=== PATIENT | female | born 1980 | race Asian ===

== ENCOUNTER 2016-08-29 22:14 | Emergency (ER) | payer OTHER ==
[~2016-08-29] VITALS: Ht 154.9 cm; Wt 59.0 kg
[2016-08-29 22:14] VITALS: BP 133/96; PULSE 75; RESP 23; TEMP 97; O2SAT 99
--- NOTE | 2016-08-29 22:14 | NUR ---
Patient to ER bed 1 to gown for evaluation. Side rails up. Report given to LEENA LAZO.
--- NOTE | 2016-08-29 22:25 | NUR ---
Pt presents to ED with c/o difficulty breathing, skin warm and intact, non-diaphretic, no acessory muscle use. A&Ox4, denies chestpain, denies N/V/D. Will continue to monitor
--- NOTE | 2016-08-29 22:55 | NUR ---
at bedside examining pt
[2016-08-29] MEDS ORDERED: LevALBUTEROL HCL 1.25 MG/0.5 ML *CONC.* VIAL.NEB (XOPENEX CONC.) INH ONE (23:00)
--- NOTE | 2016-08-29 23:30 | NUR ---
Pt in bed, stated she feels comfortable
[2016-08-30 00:20] VITALS: BP 126/90; PULSE 72; RESP 18; TEMP 97; O2SAT 98
--- NOTE | 2016-08-30 00:20 | NUR ---
Patient given written and verbal discharge instructions and verbalizes understanding. ER MD Randhawa discussed with patient the results and treatment provided. Patient in stable condition. ID arm band removed. Rx of albuterol given. Patient educated on pain management and to follow up with PMD. Pain Scale 0/10 Opportunity for questions provided and answered.
== END 2016-08-30 00:20 | disposition home or self-care (01) ==
LOC: SED 22:14
DX: B34.9 Viral infection, unspecified (principal); J45.909 Unspecified asthma, uncomplicated
CPT/HCPCS: 71010; 94150; 94640; 99283

== ENCOUNTER 2017-07-05 11:47 | Emergency (ER) | payer OTHER ==
[~2017-07-05] VITALS: Ht 154.9 cm; Wt 52.2 kg
[2017-07-05 11:47] VITALS: BP_SYST 123
[2017-07-05 12:21] LABS: BASOPHILS % (AUTO) 0.1 % (0.0-2.0); EOSINOPHILS % (AUTO) 0.7 % (0.0-4.0); HEMATOCRIT 39.2 % (36-48); HEMOGLOBIN 12.6 g/dL (12.0-16.0); LYMPHOCYTES # (AUTO) 2.4 K/uL (1.0-5.5); LYMPHOCYTES % (AUTO) 35.5 % (20.5-51.5); MEAN CORPUSCULAR HEMOGLOBIN 25 pg (27-31); MEAN CORPUSCULAR HGB CONC 32 % (32-36); MEAN CORPUSCULAR VOLUME 78 fL (79.0-98.0); MONOCYTES # (AUTO) 0.5 K/uL (0.0-1.0); MONOCYTES % (AUTO) 7.3 % (1.7-9.3); NEUTROPHILS # (AUTO) 3.9 K/uL (1.8-7.7); NEUTROPHILS % (AUTO) 56.4 % (40.0-70.0); PLATELET COUNT (AUTO) 373 K/uL (130-430); RED CELL DISTRIBUTION WIDTH 12.7 % (9.0-15.0); WHITE BLOOD COUNT (AUTO) 6.8 K/uL (4.8-10.8)
[2017-07-05 12:22] LABS: BILIRUBIN,URINE NEGATIVE (NEGATIVE); BLOOD, URINE 2+ (NEGATIVE); CLARITY/URINE CLEAR (CLEAR); COLOR,URINE YELLOW (YELLOW); GLUCOSE,URINE NEGATIVE (NEGATIVE); KETONES,URINE NEGATIVE (NEGATIVE); LEUKOCYTE ESTERASE ,URINE NEGATIVE (NEGATIVE); NITRITE, URINE NEGATIVE (NEGATIVE); PH,URINE 5.5 (5.0-8.0); PROTEIN URINE NEGATIVE (NEGATIVE); UROBILINOGEN,URINE 0.2 (0.2-1.0)
[2017-07-05 12:37] LABS: CALCIUM 9.6 mg/dL (8.4-11.0); CREATININE 0.82 mg/dL (0.55-1.30); POTASSIUM 3.6 mmol/L (3.5-5.1)
[2017-07-05 12:48] LABS: BACTERIA,URINE FEW /HPF (None Seen); WBC,URINE 0-3 /HPF (0-3)
[2017-07-05 13:00] LABS: ALBUMIN 4.4 g/dL (3.4-4.8); TOTAL BILIRUBIN 0.7 mg/dL (0.0-1.0)
--- NOTE | 2017-07-05 13:10 | NUR ---
Patient to ER bed 3 to gown for evaluation. Side rails up. Report given to Lady LAZO.
--- NOTE | 2017-07-05 13:10 | NUR ---
Pt complains of cramping to lower abdomen that radiates to lower back for 2 days. Pt also complains of spotting when wiping. Pt states she is 5 weeks . Pt denies N/V, fever, diarrhea or constipation. No other injuries/complaints per patient.
--- NOTE | 2017-07-05 13:20 | NUR ---
ER Dr. Alba at bedside examining patient.
[2017-07-05 14:30] VITALS: BP_SYST 119
--- NOTE | 2017-07-05 14:30 | NUR ---
Patient given written and verbal discharge instructions and verbalizes understanding. ER MD discussed with patient the results and treatment provided. Patient in stable condition. ID arm band removed. No Rx given. Patient educated on pain management and to follow up with PMD. Pain Scale 0. Opportunity for questions provided and answered.
== END 2017-07-05 14:30 | disposition home or self-care (01) ==
LOC: SED 11:47
DX: O20.9 Hemorrhage in early pregnancy, unspecified (principal); R03.0 Elevated blood-pressure reading, without diagnosis of hypertension; J45.909 Unspecified asthma, uncomplicated; Z3A.01 Less than 8 weeks gestation of pregnancy
CPT/HCPCS: 36415; 76805-TC; 80053; 81000-TC; 84702-TC; 85025; 86900; 86901; 99285

== ENCOUNTER 2018-02-12 07:36 | Observation (INO) | payer OTHER ==
[~2018-02-12] VITALS: Ht 154.9 cm; Wt 65.8 kg
[2018-02-12] MEDS ORDERED: PROMETHAZINE HCL 25 MG/ML AMP IM PRN (10:15)
[2018-02-12] MEDS ORDERED: MEPERIDINE HCL/PF 100 MG/ML AMP IM PRN (10:15)
[2018-02-12 19:42] VITALS: BP_SYST 120
[2018-02-13] MEDS ORDERED: LR 500 ML IV ONE (06:30)
[2018-02-14] MEDS ORDERED: LR 500 ML IV ONE (06:21)
== END 2018-02-13 09:30 | disposition home or self-care (01) ==
LOC: UNDOADMOB 07:36 → SPU 07:36
PROVIDERS: ADMIT Obstetrics & Gynecology; ATTEND Obstetrics & Gynecology
DX: O26.853 Spotting complicating pregnancy, third trimester (principal); Z3A.36 36 weeks gestation of pregnancy
CPT/HCPCS: 76805; 81002; 96372; G0378 ×2; J2175 ×2; J2550 ×2

== ENCOUNTER 2018-02-14 01:45 | Inpatient (IN) | payer OTHER ==
[~2018-02-14] VITALS: Ht 154.9 cm; Wt 67.1 kg
[2018-02-14] MEDS ORDERED: fentaNYL CITRATE/PF 100 MCG/2 ML AMP ONE (02:47)
[2018-02-14] MEDS ORDERED: ROPIVACAINE 0.2% 100 ML ONE (02:47)
[2018-02-14] MEDS ORDERED: LR 500 ML IV ONE (02:57)
[2018-02-14] MEDS ORDERED: LR 1,000 ML IV SCH (02:58)
[2018-02-14] MEDS ORDERED: LR 1,000 ML IV ONE (02:58)
[2018-02-14] MEDS ORDERED: OXYTOCIN/0.9 % SODIUM CHLORIDE 1,000 ML IV SCH ×2 (02:58→07:04)
[2018-02-14] MEDS ORDERED: NALBUPHINE HCL 10 MG/ML AMP IVP PRN (03:00)
[2018-02-14] MEDS ORDERED: FENT2mCg/mL-ROPIVA0.2%/NS EPID 150 ML EP SCH (03:00)
[2018-02-14] MEDS ORDERED: AMPICILLIN SODIUM 2 GM in NS 100 ML IV ONE (03:00)
[2018-02-14] MEDS ORDERED: TERBUTALINE SULFATE 1 MG/ML VIAL SUBCUT ONE (03:00)
[2018-02-14 03:05] VITALS: BP_SYST 124
[2018-02-14] MEDS ORDERED: AMPICILLIN SODIUM 2 GM VIAL ONE (03:07)
[2018-02-14] MEDS: AMPICILLIN SODIUM 1 GM in NS 50 ML IV SCH ×2 (03:12→06:39)
[2018-02-14 04:19] LABS: HEMATOCRIT 37.5 % (36-48); HEMOGLOBIN 11.8 g/dL (12.0-16.0); MEAN CORPUSCULAR HEMOGLOBIN 26 pg (27-31); MEAN CORPUSCULAR HGB CONC 32 % (32-36); MEAN CORPUSCULAR VOLUME 81 fL (79.0-98.0); PLATELET COUNT (AUTO) 314 K/uL (130-430); RED BLOOD CELL COUNT(AUTO) 4.62 MIL/uL (4.2-6.2); RED CELL DISTRIBUTION WIDTH 12.2 % (9.0-15.0)
[2018-02-14 05:56] LABS: BASOPHILS % (MANUAL) 0 % (0-2); EOSINOPHILS % (MANUAL) 0 % (0-7); LYMPHOCYTES % (MANUAL) 4 % (20-46); MONOCYTES % (MANUAL) 3 % (0-11)
[2018-02-14] MEDS ORDERED: AMPICILLIN SODIUM 1 GM VIAL ONE (06:41)
[2018-02-14] MEDS ORDERED: OXYTOCIN/0.9 % SODIUM CHLORIDE 1,000 ML IV ONE (07:04)
[2018-02-14] MEDS ORDERED: MEASLES,MUMPS&RUBELLA VACC/PF 12500 UNIT/0.5 ML VIAL SUBQ PRN (07:15)
[2018-02-14] MEDS ORDERED: WITCH HAZEL LEAF 1 MED.PAD MED.PAD TP PRN (07:15)
[2018-02-14] MEDS ORDERED: ANUSOL 1 EA SUPP.RECT (PREPARATION H) RC PRN (07:15)
[2018-02-14] MEDS ORDERED: RHO(D) IMMUNE GLOBULIN/MALTOSE 1500 UNITS/1.3 ML (WINHRO) IM PRN (07:15)
[2018-02-14] MEDS ORDERED: ACETAMINOPHEN 325 MG TABLET PO PRN (07:15)
[2018-02-14] MEDS ORDERED: SENNOSIDES/DOCUSATE SODIUM 1 TAB TABLET(SENOKOT-S) PO PRN (07:15)
[2018-02-14] MEDS ORDERED: DERMOPLAST SPRAY TP PRN (07:15)
[2018-02-14] MEDS ORDERED: LANOLIN 7 GM OINT. TP PRN (07:15)
[2018-02-14] MEDS ORDERED: DIPH-TET-PERTUS Vaccine 0.5 ML VIAL (ADACEL) I.M. PRN (07:15)
[2018-02-14] MEDS ORDERED: METHYLERGONOVINE MALEATE 0.2 MG TABLET PO PRN (07:15)
[2018-02-14] MEDS ORDERED: HYDROCORTISONE 0.5%, 28.35 GM TOPICAL CREAM TP PRN (07:15)
[2018-02-14] MEDS ORDERED: DOCUSATE SODIUM 100 MG CAPSULE PO PRN (07:15)
[2018-02-14] MEDS: OXYCODONE/ACETAMINOPHEN 5-325 TABLET PO PRN ×2 (09:29→20:45)
[2018-02-14] MEDS: IBUPROFEN 600 MG TABLET PO SCH ×2 (12:13→18:06)
[2018-02-14] MEDS ORDERED: TEMAZEPAM 15 MG CAPSULE PO PRN (21:00)
[2018-02-15] MEDS: IBUPROFEN 600 MG TABLET PO SCH ×3 (00:03→12:14)
[2018-02-15 06:59] LABS: HEMATOCRIT 30.3 % (36-48); HEMOGLOBIN 10.4 g/dL (12.0-16.0)
[2018-02-15] MEDS: OXYCODONE/ACETAMINOPHEN 5-325 TABLET PO PRN ×2 (15:53)
== END 2018-02-15 16:20 | disposition home or self-care (01) | DRG 775 ==
LOC: SPU 01:45
PROVIDERS: ADMIT Obstetrics & Gynecology; ATTEND Obstetrics & Gynecology
PROC: 10D07Z6 Extraction of Products of Conception, Vacuum, Via Natural or Artificial Opening (ICD-10-PCS; principal; 2018-02-14)
PROC: 3E0R3BZ Introduction of Anesthetic Agent into Spinal Canal, Percutaneous Approach (ICD-10-PCS; 2018-02-14)
PROC: 00HU33Z Insertion of Infusion Device into Spinal Canal, Percutaneous Approach (ICD-10-PCS; 2018-02-14)
DX: O76 Abnormality in fetal heart rate and rhythm complicating labor and delivery (principal); O60.14X0 Preterm labor third trimester with preterm delivery third trimester, not applicable or unspecified; Z3A.36 36 weeks gestation of pregnancy; Z37.0 Single live birth
CPT/HCPCS: 36415; 81002-TC; 82947-TC; 85007; 85018-TC; 85027; 86592; 86886; 86900; 86901; 94760; J0290; J2590; J2795; J3010